=== PATIENT | male | born 1985 | race Caucasian/White ===

== ENCOUNTER 2019-04-28 08:42 | Day surgery (SDC) | payer OTHER ==
[2019-04-28] VITALS (18 sets, daily range): BP systolic 89–122; BP diastolic 52–82
[~2019-04-28] VITALS: Ht 180.3 cm; Wt 86.8 kg
[~2019-04-28 08:42] MED LIST: NO HOME MEDS; famotidine 20mg tablet PO ONE; ringers solution, lacted 1,000 ML IV SCH
[2019-04-28] MEDS ORDERED: cefazolin/dext.iso 2gm/100 ML IV ONE (10:15)
[2019-04-28 10:36] LABS: ISTAT HGB 14.6 g/dl (14.0-18.0); ISTAT IONIZED CALCIUM 1.29 mmol/L (1.03-1.32)
--- NOTE | 2019-04-28 10:39 | NUR ---
ONLY ENOUGH BLOOD DRAWN FROM IV START TO RUN AND ISTAT. DR RUSSELL NOTIFED OF RESULTS AND THAT WE WERE UNABLE TO HAVE WBC COUNT ON ISTAT. DR RUSSELL STATED THAT THAT WAS OKAY AND HE DID NOT NEED A WBC.
[2019-04-28] MEDS ORDERED: ringers solution, lacted 1,000 ML IV SCH (11:08)
[2019-04-28] MEDS ORDERED: meperidine/PF 25mg/ml syringe IV PRN ×3 (11:10)
[2019-04-28] MEDS ORDERED: morphine 4 MG/ML inj SYRINge IV PRN ×2 (11:10)
[2019-04-28] MEDS ORDERED: ondansetron/PF 4mg/2ml inj IV PRN (11:10)
[2019-04-28] MEDS ORDERED: proCHLORperazine 10 MG/2 ml inj IV PRN (11:10)
[2019-04-28] MEDS ORDERED: ceFAZolin 1000mg inj ONE (12:10)
[2019-04-28] MEDS ORDERED: BUPIVAcaine/PF 2.5mg/ml (0.25%) 10ml vial ONE (12:10)
[2019-04-28] MEDS ORDERED: sevoflurane 250ml liquid IH ONE (12:22)
[2019-04-28] MEDS ORDERED: dexamethasone sod phosphate 10mg/ml inj ONE (12:22)
[2019-04-28] MEDS ORDERED: neostigmine methylsulfate 1 MG/ML 10ml vial ONE (12:22)
[2019-04-28] MEDS ORDERED: glycopyrrolate 0.2mg/ml inj ONE (12:22)
[2019-04-28] MEDS ORDERED: midazolam 2 mg/2 ml injection ONE (12:26)
[2019-04-28] MEDS ORDERED: fentaNYL /PF 50mcg/ml 5ml ampule ONE (12:26)
[2019-04-28] MEDS ORDERED: rocuronium 10mg/ml inj IV ONE (12:35)
[2019-04-28] MEDS ORDERED: ondansetron/PF 4mg/2ml inj ONE (12:46)
[2019-04-28] MEDS ORDERED: LIDOcaine 2% (20mg/ml) 5ml vial ONE (12:47)
[2019-04-28] MEDS ORDERED: ketorolac trometh. 30mg/ml inj. ONE (12:47)
[2019-04-28] MEDS ORDERED: propofol inj 20 ML IV ONE (12:47)
--- NOTE | 2019-04-28 13:37 | NUR ---
Received from OR via [facility], accompanied by Anesthesiologist PHILLIP and report given by Anesthesiolgist. PATIENT WITH 20G PIV IN RIGHT HAND RUNNING LR AT 100. PATIENT WITH 2 ABDOMINAL LAP SITES PRESENT AND ARE CDI. MEDICATED FOR PAIN UPON ARRIVAL. VSS. 10L MASK ON WITH 100% SATURATIONS. Addendum: 04/28/19 at 1404 by Tigre Cui RN, RN Amended: Links added.
[2019-04-28] MEDS ORDERED: ondansetron 4mg rapidly disintigrating tab PO ONE (17:15)
--- NOTE | 2019-04-28 17:27 | NUR ---
ALL DC CRITERIA HAS BEEN MET. IV TAKEN OUT WITHOUT COMPLICATIONS. ALL INSTRUCTIONS COVERED AND ALL QUESTIONS ANSWERED. DRESSINGS CDI. OUT VIA WHEELCHAIR TO PERSONAL VEHICLE WHERE PATIENT WAS SECURED IN AND DRIVEN HOME BY FAMILY. PATIENT AMBULATED AND VOIDED. VSS. NAUSEA UPON LEAVING BUT MEDICATED. AGREES TO GO HOME. Addendum: 04/28/19 at 1733 by Tigre Cui RN, RN Amended: Links added.
== END 2019-04-28 17:27 | disposition home or self-care (01) ==
LOC: PAS 08:42
PROVIDERS: ATTEND Surgery
DX: K40.20 Bilateral inguinal hernia, without obstruction or gangrene, not specified as recurrent (principal); F17.210 Nicotine dependence, cigarettes, uncomplicated; Z72.89 Other problems related to lifestyle
CPT/HCPCS: 49650; 80047; C1781; J0690; J1885; J2001; J2175; J2250; J2405; J2704; J3010; J3490; J7120; A4215; A4338; A4618; A6258; J1100; J2710

== ENCOUNTER 2019-07-08 11:20 | Outpatient (CLI) | payer OTHER ==
[~2019-07-08 11:20] MED LIST changes: -famotidine 20mg tablet PO ONE; -ringers solution, lacted 1,000 ML IV SCH
== END 2019-07-08 23:59 | disposition home or self-care (01) ==
LOC: RAD 11:20
PROVIDERS: ATTEND Surgery
DX: R10.2 Pelvic and perineal pain (principal)
CPT/HCPCS: 76881